=== PATIENT | female | born 1955 | race American Indian/Alaskan Native ===

== ENCOUNTER 2017-03-29 17:33 | Emergency (ER) | payer OTHER ==
--- NOTE | 2017-03-29 22:26 | XRay Report ---
FINAL REPORT PROCEDURE: XR SHOULDER 2+V LT TECHNIQUE: Left shoulder radiographs including AP views in internal and external rotation and abduction. CPT 53199 HISTORY: Left shoulder pain COMPARISON: No prior studies are available for comparison. FINDINGS: Fracture (s) and/or Dislocation(s): None . Joint space(s): Acromioclavicular spurring. Soft tissues: Normal . Bone mineralization: Spurring of the lateral humeral head. Foreign bodies: None . IMPRESSION: Arthritic changes and spurring.
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
[2017-03-30 03:48] VITALS: BP 119/71
== END 2017-03-30 02:00 | disposition home or self-care (01) ==
LOC: ED 17:33
DX: S16.1XXA Strain of muscle, fascia and tendon at neck level, initial encounter (principal); V49.49XA Driver injured in collision with other motor vehicles in traffic accident, initial encounter; Y93.89 Activity, other specified; Y92.89 Other specified places as the place of occurrence of the external cause; Y99.8 Other external cause status
CPT/HCPCS: 70450; 72125

== ENCOUNTER 2020-12-06 17:19 | Emergency (ER) | payer OTHER, MEDICARE ==
[2020-12-06] MEDS ORDERED: traMADol 50 MG TAB PO ONE (18:32)
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
[2020-12-06] MEDS ORDERED: predniSONE 20 MG TAB PO ONE (20:19)
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
[2020-12-06 21:57] VITALS: BP 170/90
== END 2020-12-06 21:55 | disposition home or self-care (01) ==
LOC: ED 17:19
DX: M54.2 Cervicalgia (principal); R51.9 Headache, unspecified; Z98.890 Other specified postprocedural states; V89.2XXA Person injured in unspecified motor-vehicle accident, traffic, initial encounter; Y93.89 Activity, other specified; Y92.89 Other specified places as the place of occurrence of the external cause; Y99.8 Other external cause status
CPT/HCPCS: 70450; 72125; 99283; J7512

== ENCOUNTER 2021-08-04 10:44 | Outpatient (CLI) | payer MEDICARE ==
--- NOTE | 2021-08-05 18:05 | Mammography Report ---
DIGITAL SCREENING MAMMOGRAM WITH CAD, 08/04/2021 CLINICAL INFORMATION / INDICATION: Routine screening mammography. TECHNIQUE: Digital bilateral 2D mammography was obtained in the craniocaudal and mediolateral obliqu e projections. This examination was interpreted with the benefit of Computer-Aided Detection analysis . COMPARISON: None available. FINDINGS: Breast Density: There are scattered areas of fibroglandular density. No dominant mass, suspicious calcifications, or architectural distortion in either breast. IMPRESSION: No mammographic evidence of malignancy. Follow up recommendation: Routine yearly screening mammogram. BI-RADS Category 1: NEGATIVE A "normal" or negative report should not discourage follow up or biopsy of a clinically significant f inding. A written summary of these findings will be mailed to the patient. The patient will be entered into a mammography reporting system which will generate a reminder letter for the patient's next appointmen t at the appropriate interval. The [employer] recommends yearly mammograms starting at age 40 and continuing as l claire as a woman is in good health. Breast MRI is recommended for women with an approximate 20-25% or greater lifetime risk of breast cancer, including women with a strong family history of breast or ova tarik cancer or who have been treated for Hodgkin's disease. Signer Name: Nyla Alvarado MD Signed: 08/05/2021 6:01 PM Workstation Name: [id number]
== END 2021-08-04 10:45 | disposition home or self-care (01) ==
LOC: MAMMO 10:44
PROVIDERS: ATTEND Family Medicine
DX: Z12.31 Encounter for screening mammogram for malignant neoplasm of breast (principal)
CPT/HCPCS: 77067